=== PATIENT | female | born 1990 | race Caucasian/White ===

== ENCOUNTER → 2016-09-21 | Outpatient (CLI) | payer OTHER ==
--- NOTE | 2016-09-23 15:27 | DI ---
XR SHOULDER MIN 2VW,09/21/2016 1:41 PM: Clinical History: Injury Previous Exam: None at this facility. Findings: 3 views of the right shoulder are obtained, and demonstrate anatomic alignment without fractures. The surrounding soft tissue and osseous structures are unremarkable. Impression: Normal right shoulder.
== END ==
LOC: MOB LAB 13:43
PROVIDERS: ATTEND Physician Assistant Medical
DX: M25.511 Pain in right shoulder (principal); S46.211A Strain of muscle, fascia and tendon of other parts of biceps, right arm, initial encounter
CPT/HCPCS: 73030